=== PATIENT | male | born 1955 | race Caucasian/White ===

== ENCOUNTER 2017-11-11 13:43 | Outpatient (CLI) | payer OTHER | END 2017-11-11 13:44 | disposition home or self-care (01) | LOC: ULT 13:43 | PROVIDERS: ATTEND Internal Medicine Geriatric Medicine | DX: R01.1 Cardiac murmur, unspecified (principal); I08.3 Combined rheumatic disorders of mitral, aortic and tricuspid valves | CPT/HCPCS: 93306 ==

== ENCOUNTER 2017-11-28 10:03 | Outpatient (CLI) | payer OTHER | END 2017-11-28 10:04 | disposition home or self-care (01) | LOC: BICULT 10:03 | PROVIDERS: ATTEND Specialist | DX: E04.2 Nontoxic multinodular goiter (principal) | CPT/HCPCS: 76536 ==

== ENCOUNTER 2018-12-13 12:22 | Outpatient (CLI) | payer OTHER ==
--- NOTE | 2018-12-13 13:48 | ULT ---
Ultrasound thyroid: DATE: 12/13/2018 HISTORY: Follow-up thyroid nodule FINDINGS: Isthmus: 0.3 cm Right lobe: 1.7 x 4.8 x 1.7 cm Left lobe: 1.4 x 4.3 x 1.3 cm Thyroid nodules: Right lobe: Upper pole: Tiny 0.3 cm right upper lobe hypoechoic lesion, unchanged. Midpole: 0.5 cm round hypoechoic nodule with eggshell rim calcification. Unchanged. Lower pole: 1.3 x 0.9 x 1.2 cm solid nodule Left lobe: 1 x 0.7 x 0.97 m solid nodule. No interval change overall since 06/14/2016. IMPRESSION: Multiple thyroid nodules. Unchanged since 06/14/2016.
== END 2018-12-13 12:23 | disposition home or self-care (01) ==
LOC: BICULT 12:22
PROVIDERS: ATTEND Specialist
DX: E04.2 Nontoxic multinodular goiter (principal)
CPT/HCPCS: 76536